=== PATIENT | female | born 1955 | race Caucasian/White ===

== ENCOUNTER 2017-04-11 16:26 | Emergency (ER) | payer OTHER ==
[~2017-04-11] VITALS: Ht 149.9 cm; Wt 72.6 kg
[2017-04-11] MEDS ORDERED: SYNTHROID125 MCG PO (17:21)
[2017-04-11] MEDS ORDERED: CYMBALTA60 MG PO (17:21)
[2017-04-11] MEDS ORDERED: DICLOFENAC SODI25 MG PO (17:22)
[2017-04-11] MEDS ORDERED: FLEXERIL PO (17:22)
[2017-04-11] MEDS ORDERED: REMERON15 MG PO (17:23)
[2017-04-11 18:00] VITALS: BP 117/54
[2017-04-11] MEDS ORDERED: PREDNISONE 20 M20 MG PO (18:13)
[2017-04-11] MEDS ORDERED: ALBUTEROL2.5 MG/31 INH (18:13)
[2017-04-11] MEDS ORDERED: TRAMADOL 50 MG50 MG PO (18:13)
[2017-04-11] MEDS ORDERED: NORFLEX100 MG PO (18:13)
== END 2017-04-11 18:19 | disposition home or self-care (01) ==
LOC: ER 16:26
DX: S16.1XXA Strain of muscle, fascia and tendon at neck level, initial encounter (principal); S29.012A Strain of muscle and tendon of back wall of thorax, initial encounter; R07.89 Other chest pain; M54.5 Low back pain; J40 Bronchitis, not specified as acute or chronic; F32.9 Major depressive disorder, single episode, unspecified; E03.9 Hypothyroidism, unspecified; M19.90 Unspecified osteoarthritis, unspecified site; F17.210 Nicotine dependence, cigarettes, uncomplicated; V89.0XXA Person injured in unspecified motor-vehicle accident, nontraffic, initial encounter; Y93.89 Activity, other specified; Y92.89 Other specified places as the place of occurrence of the external cause; Y99.8 Other external cause status